=== PATIENT | female | born 1990 | race African-American/Black ===

== ENCOUNTER 2021-10-31 05:33 | Emergency (ER) | payer OTHER | END 2021-10-31 06:30 | disposition home or self-care (01) | LOC: CSHERS 05:33 | DX: S93.602A Unspecified sprain of left foot, initial encounter (principal); Z87.891 Personal history of nicotine dependence; W01.0XXA Fall on same level from slipping, tripping and stumbling without subsequent striking against object, initial encounter ==

== ENCOUNTER 2022-10-05 07:43 | Emergency (ER) | payer OTHER | END 2022-10-05 20:41 | disposition home or self-care (01) | LOC: CSHERS 07:43 | DX: O02.81 Inappropriate change in quantitative human chorionic gonadotropin (hCG) in early pregnancy (principal); Z3A.00 Weeks of gestation of pregnancy not specified | CPT/HCPCS: 36415; 84702; 99282 ==

== ENCOUNTER 2023-01-08 10:32 | Outpatient (CLI) | payer OTHER | END 2023-01-08 10:33 | disposition home or self-care (01) | LOC: CSHULT 10:32 | PROVIDERS: ATTEND Family Medicine | DX: O09.892 Supervision of other high risk pregnancies, second trimester (principal); Z3A.19 19 weeks gestation of pregnancy | CPT/HCPCS: 76805 ==

== ENCOUNTER 2023-04-18 15:32 | Day surgery (SDC) | payer OTHER ==
[2023-04-18 15:59] VITALS: BMI 38.7
[2023-04-18] MEDS ORDERED: hydrALAZINE 20 MG/ML VIAL SLOW IVP PRN (16:24)
[2023-04-18] MEDS ORDERED: Fioricet 325/50/40 mg Tablet PO SCH (16:45)
[2023-04-18 16:47] LABS: Bilirubin Neg (Negative); Blood, Urine Negative (Negative); Clarity Clear (Clear); Glucose, Urine (Dipstick) Normal (Negative); Ketone, Urine Negative (Negative); Leukocyte Negative (Negative); Nitrite Negative (Negative); Protein, Urine (Dipstick) Negative (Neg-Trace); Specific Gravity, Urine 1.005 (1.005-1.030); Urobilinogen Normal mg/dL (Less than 2)
[2023-04-18 16:59] LABS: Bacteria/HPF 2+ HPF (None Seen); CAUTI Indications for Culture Pelvic or flank pain; RBC/HPF 0-3 HPF (0-3); Urine Culture Reflex No No; WBC/HPF 0-3 HPF (0-3)
== END 2023-04-18 18:50 | disposition home or self-care (01) ==
LOC: CSHLD/OP 15:32
PROVIDERS: ATTEND Family Medicine
DX: O99.891 Other specified diseases and conditions complicating pregnancy (principal); R51.9 Headache, unspecified; R10.2 Pelvic and perineal pain; O36.5930 Maternal care for other known or suspected poor fetal growth, third trimester, not applicable or unspecified; Z79.899 Other long term (current) drug therapy; Z91.041 Radiographic dye allergy status; Z88.5 Allergy status to narcotic agent; Z87.59 Personal history of other complications of pregnancy, childbirth and the puerperium
CPT/HCPCS: 81001

== ENCOUNTER 2023-05-07 10:36 | Day surgery (SDC) | payer OTHER ==
[2023-05-07 11:02] VITALS: BMI 40.2
[2023-05-07] MEDS ORDERED: hydrALAZINE 20 MG/ML VIAL SLOW IVP PRN (11:18)
[2023-05-07] MEDS: Cyclobenzaprine 10 MG TAB PO SCH (11:51)
== END 2023-05-07 12:14 | disposition home or self-care (01) ==
LOC: CSHLD/OP 10:36
PROVIDERS: ATTEND Family Medicine
DX: O99.891 Other specified diseases and conditions complicating pregnancy (principal); M54.50 Low back pain, unspecified; R10.2 Pelvic and perineal pain; O36.5930 Maternal care for other known or suspected poor fetal growth, third trimester, not applicable or unspecified; Z3A.36 36 weeks gestation of pregnancy; Z79.899 Other long term (current) drug therapy; Z90.49 Acquired absence of other specified parts of digestive tract; Z88.5 Allergy status to narcotic agent; Z91.041 Radiographic dye allergy status; Z88.8 Allergy status to other drugs, medicaments and biological substances
CPT/HCPCS: 99283

== ENCOUNTER 2023-05-13 09:44 | Inpatient (IN) | payer OTHER ==
[2023-05-10 12:20] LABS: Hematocrit 33.8 % (34.9-44.5); Hemoglobin 11.7 g/dL (12.0-15.5); Mean Corpuscular HGB CONC 34.6 g/dL (32.0-36.0); Mean Corpuscular Hemoglobin 29.6 pg (27.0-33.0); Mean Corpuscular Volume 85.6 fl (81.6-98.3); Mean Platelet Volume 11.2 fl (7.4-10.4); Platelet Count 255 10x3/uL (150-450); RBC Distribution Width 13.7 % (11.5-14.5); Red Blood Cell (RBC) Count 3.95 10x6/uL (3.90-5.03)
[2023-05-10 12:51] LABS: HIV (1/2) Antibody/Antigen Non-Reactive (NonReactive); HIV 1/2 INDEX 0.06 S/CO (<1.00); Hep B Surf Ag Non-Reactive S/CO (NonReactive)
[2023-05-10 12:52] LABS: Syphilis Antibody Nonreactive (Nonreactive); Syphilis Antibody Index 0.02 S/CO (<1.00 Non-Reactive)
[2023-05-13] MEDS ORDERED: Tranexamic Acid 1,000 MG/10 ML VIAL IVP PRN (10:10)
[2023-05-13] MEDS ORDERED: Lactated Ringer's 1,000 ML IV SCH (10:10)
[2023-05-13] MEDS ORDERED: Oxytocin 30 units/NS 500 ML 500 ML IV SCH (10:10)
[2023-05-13] MEDS ORDERED: Misoprostol 200 MCG TAB PR PRN (10:10)
[2023-05-13] MEDS ORDERED: Ondansetron PF 4 MG/2 ML Vial IVP PRN ×3 (10:10→11:36)
[2023-05-13] MEDS ORDERED: Diphenoxylate HCl/Atropine Tablet PO PRN (10:10)
[2023-05-13] MEDS ORDERED: Promethazine HCl 25 MG/ML VIAL IM PRN (10:10)
[2023-05-13] MEDS ORDERED: Methylergonovine 0.2 MG/ML VIAL IM PRN (10:10)
[2023-05-13] MEDS ORDERED: Carboprost 250 MCG/ML AMP IM PRN (10:10)
[2023-05-13] MEDS ORDERED: Bicitra 30 ML UDCUP PO PRN (10:10)
[2023-05-13] MEDS ORDERED: hydrALAZINE 20 MG/ML VIAL SLOW IVP PRN ×2 (10:10→15:17)
[2023-05-13 10:14] VITALS: BMI 40.2
[2023-05-13] MEDS ORDERED: Moisturizing Cream (Eucerin) 113 GM JAR TOP PRN (11:36)
[2023-05-13] MEDS ORDERED: fentaNYL 50 mcg/mL 1 mL Vial SLOW IVP PRN (11:36)
[2023-05-13] MEDS ORDERED: diphenhydrAMINE 50 MG/ML VIAL IVP PRN (11:36)
[2023-05-13] MEDS ORDERED: Morphine 4 MG/ML VIAL SLOW IVP PRN (11:36)
[2023-05-13] MEDS ORDERED: Meperidine HCl/PF 25 MG (1 mL) VIAL SLOW IVP PRN (11:36)
[2023-05-13] MEDS ORDERED: Naloxone HCl 0.4 mg/ml Vial IVP PRN ×2 (11:36)
[2023-05-13] MEDS ORDERED: Naloxone HCl 0.4 mg/ml Vial IV PRN (11:36)
[2023-05-13] MEDS: CEFAZOLIN 2 GM in Sodium Chloride 0.9% 100 ML IVPB SCH (11:40)
[2023-05-13] MEDS: Famotidine/PF 20 mg/2ml Vial SLOW IVP PRN (11:44)
[2023-05-13] MEDS ORDERED: Communication Order-Pharmacy FS SCH (11:45)
[2023-05-13] MEDS: Ketorolac Tromethamine 30 MG (1 mL) VIAL ONE (15:59)
[2023-05-13] MEDS: Morphine PF 10 MG/10 ML VIAL ONE (15:59)
[2023-05-13] MEDS: Ondansetron PF 4 MG/2 ML Vial ONE (15:59)
[2023-05-13] MEDS: Oxytocin 10 UNITS/ML VIAL ONE ×4 (15:59)
[2023-05-13] MEDS: Dexamethasone 4 mg/ml Vial ONE (15:59)
[2023-05-13] MEDS: PHENYLEPHRINE-NS 100 MCG/ML 10 ML SYRINGE ONE (15:59)
[2023-05-13] MEDS: Boostrix 0.5 ML (Tdap) VIAL (>/=7 yrs of age) IM ONE (16:00)
[2023-05-13] MEDS: ePHEDrine Sulfate 50 MG/10 ML VIAL ONE (16:00)
[2023-05-13] MEDS: Ondansetron PF 4 MG/2 ML Vial IVP PRN (17:15)
[2023-05-13] MEDS ORDERED: Ketorolac Tromethamine 30 MG (1 mL) VIAL IVP PRN (18:00)
[2023-05-13] MEDS: Ketorolac Tromethamine 30 MG (1 mL) VIAL IVP SCH (19:37)
[2023-05-13] MEDS: Famotidine/PF 20 mg/2ml Vial SLOW IVP SCH (20:21)
[2023-05-13] MEDS: Docusate 100 MG CAP PO SCH (20:55)
[2023-05-13] MEDS: Ferrous Sulfate 325 MG TAB PO SCH (20:55)
[2023-05-13] MEDS ORDERED: Meperidine HCl/PF 25 MG (1 mL) VIAL IM PRN (23:45)
[2023-05-14 05:12] LABS: Hematocrit 29.5 % (34.9-44.5); Hemoglobin 10.2 g/dL (12.0-15.5); Mean Corpuscular HGB CONC 34.6 g/dL (32.0-36.0); Mean Corpuscular Hemoglobin 29.7 pg (27.0-33.0); Mean Corpuscular Volume 85.8 fl (81.6-98.3); Mean Platelet Volume 11.4 fl (7.4-10.4); Platelet Count 233 10x3/uL (150-450); RBC Distribution Width 13.6 % (11.5-14.5); Red Blood Cell (RBC) Count 3.44 10x6/uL (3.90-5.03)
[2023-05-14] MEDS: Metoclopramide HCl 10 MG (2 mL) VIAL IVP SCH (06:20)
[2023-05-14] MEDS: Prenatal Vitamin 1 TAB PO SCH (08:01)
[2023-05-14] MEDS: diphenhydrAMINE 25 MG CAP PO PRN (08:51)
[2023-05-14] MEDS: Lanolin Ointment 7 GM TUBE TOP PRN (08:53)
[2023-05-14] MEDS: HYDROcodone/Acetaminophen 5/325 mg Tablet PO PRN (09:23)
[2023-05-14] MEDS: Calcium Carbonate 500 MG ChewTAB PO PRN (11:19)
[2023-05-14] MEDS: Ibuprofen 800 MG TAB PO SCH (13:19)
[2023-05-14] MEDS: Polyethylene Glycol 3350 17 GM Packet PO SCH (14:56)
[2023-05-14] MEDS: Simethicone Chewable 80 MG TAB PO PRN (22:31)
[2023-05-15] MEDS: Polyethylene Glycol 3350 17 GM Packet PO SCH (08:02)
[2023-05-15] MEDS: Milk Of Magnesia 30 ML UDCUP PO PRN (20:15)
[2023-05-16] MEDS: Bisacodyl 10 MG SUPP PR PRN (00:10)
[2023-05-16 08:00] VITALS: BP 121/70; TEMP 97.4
[2023-05-16] MEDS: HYDROcodone/Acetaminophen 5/325 mg Tablet PO PRN (09:18)
== END 2023-05-16 18:20 | disposition home or self-care (01) | DRG 788 ==
LOC: CSHLD 09:44 → CSHPP 15:28
PROVIDERS: ADMIT Family Medicine; ATTEND Family Medicine
PROC: 10D00Z1 Extraction of Products of Conception, Low, Open Approach (ICD-10-PCS; principal; 2023-05-13)
PROC: 3E033XZ Introduction of Vasopressor into Peripheral Vein, Percutaneous Approach (ICD-10-PCS; 2023-05-13)
DX: O34.211 Maternal care for low transverse scar from previous cesarean delivery (principal); O36.5930 Maternal care for other known or suspected poor fetal growth, third trimester, not applicable or unspecified; Z3A.37 37 weeks gestation of pregnancy; Z37.0 Single live birth
CPT/HCPCS: 36415; 51702; 85027; 86780; 86850; 86900; 86901; 87340; 87389; 99285; J1100; J1885; J2274; J2405; J2590; J3490; S0028

== ENCOUNTER 2023-08-16 10:42 | Emergency (ER) | payer OTHER ==
[2023-08-16] MEDS ORDERED: Ketorolac Tromethamine 30 MG (1 mL) VIAL ONE (11:36)
== END 2023-08-16 11:45 | disposition home or self-care (01) ==
LOC: CSHERS 10:42
DX: N61.0 Mastitis without abscess (principal)
CPT/HCPCS: 96372; 99283; J1885

== ENCOUNTER 2023-12-29 16:45 | Emergency (ER) | payer OTHER ==
[2023-12-29] MEDS ORDERED: Ibuprofen 200 MG TAB ONE (18:03)
== END 2023-12-29 18:10 | disposition home or self-care (01) ==
LOC: CSHERS 16:45
DX: R11.2 Nausea with vomiting, unspecified (principal); R19.7 Diarrhea, unspecified
CPT/HCPCS: 99283

== ENCOUNTER 2024-11-03 18:11 | Emergency (ER) | payer OTHER ==
[2024-11-03] MEDS ORDERED: Acetaminophen 500 MG TAB ONE (19:25)
== END 2024-11-03 19:45 | disposition home or self-care (01) ==
LOC: CSHERS 18:11
DX: S39.012A Strain of muscle, fascia and tendon of lower back, initial encounter (principal); R51.9 Headache, unspecified; V43.52XA Car driver injured in collision with other type car in traffic accident, initial encounter; Y93.89 Activity, other specified
CPT/HCPCS: 99284

== ENCOUNTER 2024-11-05 08:13 | Emergency (ER) | payer OTHER ==
[2024-11-05] MEDS ORDERED: Ketorolac Tromethamine 30 MG (1 mL) VIAL ONE (08:49)
[2024-11-05] MEDS ORDERED: Ondansetron PF 4 MG/2 ML Vial ONE (08:49)
[2024-11-05 08:57] LABS: #Basophils 0.05 10x3/uL (0.0-0.2); #Eosinophils 0.11 10x3/uL (0.0-0.5); #Monocytes 0.36 10x3/uL (0.0-1.1); #Neutrophils 4.80 10x3/uL (1.5-8.4); %Basophils 0.7 % (0.0-2.0); %Eosinophils 1.5 % (0.0-6.0); %Lymphocytes 28.4 % (18.0-47.0); %Monocytes 4.8 % (0.0-10.0); %Neutrophils 64.5 % (40.0-75.0); Hematocrit 41.1 % (34.9-44.5); Hemoglobin 13.9 g/dL (12.0-15.5); Mean Corpuscular Hemoglobin 29.1 pg (27.0-33.0); Mean Corpuscular Volume 86.0 fL (81.6-98.3); Platelet Count 343 10x3/uL (150-450); Red Blood Cell (RBC) Count 4.78 10x6/uL (3.90-5.03); White Blood Cell (WBC) Count 7.44 10x3/uL (3.5-10.5)
[2024-11-05 09:11] LABS: BHCG - Serum Negative (NEGATIVE); Pregs Control Background? CLEAR/WHITE (CLR/WHITE); Pregs Control Bar Appear? YES (CONTROL BAR)
[2024-11-05 09:12] LABS: ALT (SGPT) 24 U/L (Less than 34); AST (SGOT) 30 U/L (11-34); Albumin 4.4 g/dL (3.1-4.5); Alkaline Phosphatase 56 U/L (40-110); Anion Gap 13 mmol/L (10-20); BUN (Urea Nitrogen) 10 mg/dL (7.0-18.7); Bilirubin, Total 0.4 mg/dL (0.3-1.2); Calc. Creatinine Clearance 0 mL/min (70-130); Calcium 9.0 mg/dL (7.8-10.44); Carbon Dioxide 24 mmol/L (22-29); Chloride 107 mmol/L (98-107); Globulin 3.8 g/dL (2.4-3.5); Glucose 101 mg/dL (70-105); Potassium 4.5 mmol/L (3.5-5.1); Sodium 139 mmol/L (136-145)
[2024-11-05] MEDS ORDERED: Iopamidol 370 76% 100 ML VIAL ONE (12:24)
== END 2024-11-05 11:42 | disposition home or self-care (01) ==
LOC: CSHERS 08:13
DX: H81.13 Benign paroxysmal vertigo, bilateral (principal); Z55.6 Problems related to health literacy
CPT/HCPCS: 70450; 70496; 70498; 72125; 80053; 84703; 85025; 96372; 96374; 96375; J1885; J2060; J2405; Q9967